=== PATIENT | male | born 1985 | race Caucasian/White ===

== ENCOUNTER 2017-07-03 18:44 | Emergency (ER) | payer OTHER ==
[~2017-07-03] VITALS: Ht 175.3 cm; Wt 94.7 kg
[2017-07-03 18:49] VITALS: TEMP 36.3; Ht 175.3 cm; Wt 94.7 kg
[2017-07-03] MEDS ORDERED: DEXTROSE 50% 50 ML SYR ONE (19:02)
[2017-07-03] MEDS ORDERED: DEXTROSE 50% 50 ML SYR IV STA (19:03)
[2017-07-03 19:14] VITALS: O2SAT 99
--- NOTE | 2017-07-03 19:15 | EMERGENCY ROOM VISIT NOTE ---
History Report prepared by Mo: Tanvir Cali Under the Supervision of: Dr. Greyson Lala M.D. First contact with patient: 18:44 Chief Complaint: HYPOGLYCEMIA Stated Complaint: HYPOGLYCEMIA History of Present Illness The patient is a 32 year old male who presents to the Emergency Room with complaints of an episode of hypoglycemia occurring two hours ago. Per EMS, the patient has a history of diabetes and had a blood sugar level of 48 about two hours ago. He states that the patient felt fine initially and gave himself 16mg of NovoLog insulin before eating two hamburgers. He notes that the patient then had an episode of AMS after eating. He reports that when EMS arrived, the patient was speaking but had a blank stare. He states that the patient's blood sugar was 146 twenty minutes after eating. He notes that the patient's blood sugar was then 260, which might not have been accurate because the patient appeared altered and diaphoretic again. He reports that the patient's blood sugar was checked again to be 27. He states that the patient was given three tubes of oral glucose. He notes that the patient's blood sugar was checked to be 50 while at the emergency department. The patient reports that he has not had similar symptoms in the past and has not changed anything about his routine or taken any extra insulin. He denies any headaches, chest pain, back pain, SOB , abdominal pain, diarrhea, urinary symptoms, melena, and numbness in his arms/ legs. Per , the patient was drooling and had an episode of LOC and eyes rolling. The patient states that he currently feels like he is "not completely awake." Source of History: patient, spouse/significant other (), EMS Onset: two hours ago Position: other (global) Symptom Intensity: blood sugar level of 27 Quality: other (hypoglycemia) Timing: other (an episode) Associated Symptoms: + LOC, + diaphoresis Note: Per EMS, the patient had an episode of AMS. Per , the patient's eyes were rolling in his head and he was drooling during his episode. Review of Systems See HPI for pertinent positives and negatives. A total of ten systems were reviewed and were otherwise negative. Past Medical & Surgical Medical Problems: (1) Diabetes Family History No pertinent family history stated. Social History Marital Status: Housing Status: lives with family Occupation Status: employed Current/Historical Medications Scheduled Insulin Aspart (Novolog), SQ ACHS Insulin Glargine (Lantus), 25 SC QPM Physical Exam Vital Signs Date Time Temp Pulse Resp B/P (MAP) Pulse Ox O2 Delivery O2 Flow Rate FiO2 07/03/17 21:07 94 15 115/64 98 07/03/17 19:52 95 15 115/64 95 Room Air 07/03/17 19:14 99 Room Air 07/03/17 18:49 36.3 96 16 127/64 98 Room Air Physical Exam GENERAL: Awake, alert, well-appearing, in no distress HENT: Normocephalic, atraumatic. Oropharynx unremarkable. EYES: Normal conjunctiva. Sclera non-icteric. NECK: Supple. No nuchal rigidity. FROM. No masses. RESPIRATORY: Clear to auscultation. No wheezes. No rales. Normal respiratory effort. CARDIAC: Borderline tachycardic rate. Normal rhythm. No murmurs. No rubs. Extremities warm and well perfused. Pulses equal. No JVD. GI: Soft, non-distended. No tenderness to palpation. No rebound or guarding. No masses. RECTAL: Deferred. MUSCULOSKELETAL: Atraumatic. Chest examination reveals no tenderness. The back is symmetrical on inspection without obvious abnormality. There is no CVA tenderness to palpation. No joint edema. LOWER EXTREMITIES: Calves are equal size bilaterally and non-tender. No edema. No discoloration. NEURO: Normal sensorium. No sensory or motor deficits noted. SKIN: No rash or jaundice noted. Medical Decision & Procedures Laboratory Results 07/03/17 19:00 Red Blood Count 5.20, Mean Corpuscular Volume 87.9, Mean Corpuscular Hemoglobin 29.6, Mean Corpuscular Hemoglobin Concent 33.7, Mean Platelet Volume 9.9, Neutrophils (%) (Auto) 68.2, Lymphocytes (%) (Auto) 20.4, Monocytes (%) (Auto) 8.7, Eosinophils (%) (Auto) 1.9, Basophils (%) (Auto) 0.7, Neutrophils # (Auto) 5.72, Lymphocytes # (Auto) 1.71, Monocytes # (Auto) 0.73, Eosinophils # (Auto) 0.16, Basophils # (Auto) 0.06 07/03/17 19:00 Test 07/03/17 19:00 07/03/17 21:00 White Blood Count 8.39 K/uL (4.8-10.8) Red Blood Count 5.20 M/uL (4.7-6.1) Hemoglobin 15.4 g/dL (14.0-18.0) Hematocrit 45.7 % (42-52) Mean Corpuscular Volume 87.9 fL (80-100) Mean Corpuscular Hemoglobin 29.6 pg (25-34) Mean Corpuscular Hemoglobin Concent 33.7 g/dl (32-36) Platelet Count 292 K/uL (130-400) Mean Platelet Volume 9.9 fL (7.4-10.4) Neutrophils (%) (Auto) 68.2 % Lymphocytes (%) (Auto) 20.4 % Monocytes (%) (Auto) 8.7 % Eosinophils (%) (Auto) 1.9 % Basophils (%) (Auto) 0.7 % Neutrophils # (Auto) 5.72 K/uL (1.4-6.5) Lymphocytes # (Auto) 1.71 K/uL (1.2-3.4) Monocytes # (Auto) 0.73 K/uL (0.11-0.59) Eosinophils # (Auto) 0.16 K/uL (0-0.5) Basophils # (Auto) 0.06 K/uL (0-0.2) RDW Standard Deviation 41.6 fL (36.4-46.3) RDW Coefficient of Variation 13.0 % (11.5-14.5) Immature Granulocyte % (Auto) 0.1 % Immature Granulocyte # (Auto) 0.01 K/uL (0.00-0.02) Anion Gap 5.0 mmol/L (3-11) Est Creatinine Clear Calc Drug Dose 99.7 ml/min Estimated GFR () 91.0 Estimated GFR (Non- 78.5 BUN/Creatinine Ratio 23.5 (10-20) Calcium Level 8.9 mg/dl (8.5-10.1) Magnesium Level 2.4 mg/dl (1.8-2.4) Total Bilirubin 0.6 mg/dl (0.2-1) Aspartate Amino Transf (AST/SGOT) 27 U/L (15-37) Alanine Aminotransferase (ALT/SGPT) 29 U/L (12-78) Alkaline Phosphatase 58 U/L (45-117) Total Protein 8.2 gm/dl (6.4-8.2) Albumin 4.5 gm/dl (3.4-5.0) Globulin 3.7 gm/dl (2.5-4.0) Albumin/Globulin Ratio 1.2 (0.9-2) Thyroid Stimulating Hormone (TSH) 1.920 uIu/ml (0.300-4.500) Chemistry Specimen Hemolysis Bedside Glucose 260 mg/dl (70-99) Laboratory results reviewed by me Medications Administered Medications (Trade) Dose Ordered Sig/Emerald Route Start Time Stop Time Status Last Admin Dose Admin Dextrose (Dextrose 50% 50ML Syringe) 25 ml NOW STAT IV 07/03/17 19:03 07/03/17 19:06 DC 07/03/17 19:06 25 ML ECG Per My Interpretation Indication: altered mental status Rate (beats per minute): 94 Findings: no acute ischemic change, no ectopy ED Course 1844: The patient was evaluated in room B9. A complete history and physical exam was performed. 1902: Dextrose 25ml IV 2007: I reevaluated and updated the patient. He feels great. 2105: I reevaluated the patient. Discussed results and discharge instructions: he verbalized understanding and agreement. The patient is ready for discharge. Medical Decision Triage Nursing notes reviewed. The patient's presentation and history were concerning for AMS and hypoglycemia. Etiologies such as hypo/hyperglycemia, metabolic, infection, electrolyte abnormalities, cardiac sources, intracerebral event, toxicologic, neurologic, as well as others were entertained. Patient was evaluated. Clinically he was doing well. His examination was nonfocal. His blood sugar fluctuated and seemed to follow his waxing and waning mental status. It sounds like his blood sugar was at 48 then he took his insulin. He then ate hamburgers but did not have any significant glucose intake. He then was altered. The patient came around but then again had a decrease in his mental status with diaphoresis. His blood sugar was as low as 27. Oral glucose was given. He was still low but doing better after arrival in the emergency department. He was given additional IV dose of dextrose. He was observed. Blood work and ECG obtained. His testing was unremarkable except for hypoglycemia. The patient had his glucose rechecked and he was slightly hyperglycemic. He felt back to normal. He was observed and did very well. Repeat blood glucose was stable. The patient desired discharge. He was counseled on his insulin use. He will monitor this frequently throughout the next few days and follow-up with his primary clinic. If he has any problems he will come back. Given the issues it seems that hypoglycemia was the culprit. I gave my usual and customary discussion regarding this issue. By the evaluation outlined above other emergent etiologies such as those listed in the differential, as well as others, were deemed relatively unlikely. The patient was educated about the findings as listed above. All questions were answered and the patient was pleased with the treatment. Return instructions were outlined and the patient was discharged in stable condition. The patient was referred to his primary clinic for follow-up for a recheck of the current condition. Medication Reconcilliation Current Medication List: was personally reviewed by me Blood Pressure Screening Patient's blood pressure: Normal blood pressure Blood pressure disposition: Did not require urgent referral Impression Primary Impression: Hypoglycemia Additional Impression: Altered mental status Scribe Attestation The scribe's documentation has been prepared under my direction and personally reviewed by me in its entirety. I confirm that the note above accurately reflects all work, treatment, procedures, and medical decision making performed by me. Departure Information Dispostion Home / Self-Care Forms HOME CARE DOCUMENTATION FORM, IMPORTANT VISIT INFORMATION, WORK / SCHOOL INSTRUCTIONS Patient Instructions My [facility] [place] Additional Instructions Monitor your blood glucose at least 4 times a day and in between as needed for the next 2-3 days and then as instructed by your primary doctor. If you measure a low value, below 70, make sure you eat before you take your insulin dosing. Continue current medications. Return to the ER for confusion, chest pain, severe headache, passing out, difficulty breathing, fevers, numbness, tingling, worsening of your condition, or as needed. Follow-up with your primary physician on Wednesday. Problem Qualifiers
[2017-07-03 19:31] LABS: BASO % 0.7 %; BASO ABS # 0.06 K/uL (0-0.2); EOS % 1.9 %; EOS ABS # 0.16 K/uL (0-0.5); HEMATOCRIT 45.7 % (42-52); HEMOGLOBIN 15.4 g/dL (14.0-18.0); IG# 0.01 K/uL (0.00-0.02); LYMPH % 20.4 %; LYMPH ABS # 1.71 K/uL (1.2-3.4); MEAN CELL VOLUME 87.9 fL (80-100); MEAN CORPUSCULAR HEMOGLOBIN 29.6 pg (25-34); MEAN CORPUSCULAR HGB CONC 33.7 g/dl (32-36); MEAN PLATELET VOLUME 9.9 fL (7.4-10.4); MONO % 8.7 %; MONO ABS # 0.73 K/uL (0.11-0.59); NEUT % 68.2 %; NEUT ABS # 5.72 K/uL (1.4-6.5); PLATELET COUNT 292 K/uL (130-400); RED CELL DISTRIBUTION WIDTH SD 41.6 fL (36.4-46.3); WHITE BLOOD COUNT 8.39 K/uL (4.8-10.8)
[2017-07-03 20:09] LABS: CREATININE 1.22 mg/dl (0.60-1.40)
[2017-07-03 20:10] LABS: ALBUMIN 4.5 gm/dl (3.4-5.0); CALCIUM 8.9 mg/dl (8.5-10.1); TOTAL PROTEIN 8.2 gm/dl (6.4-8.2)
[2017-07-03] MEDS ORDERED: NVLG SQ (20:17)
[2017-07-03] MEDS ORDERED: INSDGI SC (20:18)
[2017-07-03 20:55] LABS: POTASSIUM 3.5 mmol/L (3.5-5.1)
[2017-07-03 21:07] VITALS: BP 115/64; PULSE 94; O2SAT 98
== END 2017-07-03 21:09 | disposition home or self-care (01) ==
LOC: C.EDB 18:46
DX: E11.65 Type 2 diabetes mellitus with hyperglycemia (principal); Z79.4 Long term (current) use of insulin